=== PATIENT | female | born 1955 | race African-American/Black ===

== ENCOUNTER 2017-05-01 14:22 | Inpatient (IN) | payer OTHER ==
[~2017-05-01] VITALS: Ht 162.6 cm; Wt 63.5 kg
[~2017-05-01 14:22] MED LIST: CLONADINE PO
[2017-05-01 16:09] LABS: BASOPHILS % 0.2 % (0.0-2.0); EOSINOPHILS % 0.4 % (0.0-5.0); HEMATOCRIT. 37.7 % (36.0-48.0); HEMOGLOBIN. 13.2 g/dL (12.0-16.0); LYMPHOCYTES % 27.2 % (20.0-50.0); MEAN CORPUSCULAR VOLUME 88.9 fL (81.0-99.0); MEAN PLATELET VOLUME 7.5 fl (7.4-10.4); MONOCYTES % 7.2 % (2.0-8.0); PLATELET 329 x1000/uL (130-400); RED BLOOD CELL COUNT 4.24 mill/uL (4.2-5.4)
[2017-05-01 16:14] LABS: CHLORIDE 105 mEq/L (98-107)
[2017-05-01 16:15] LABS: CLARITY URINE CLEAR (CLEAR); COLOR URINE YELLOW (YELLOW); GLUCOSE URINE NEGATIVE (NEGATIVE); KETONES URINE NEGATIVE (NEGATIVE); LEUKOCYTE ESTERASE URINE NEGATIVE (NEGATIVE); NITRITE URINE NEGATIVE (NEGATIVE); OCCULT BLOOD URINE TRACE (NEGATIVE); PH URINE 7.5 (4.5-8.0); PROTEIN URINE NEGATIVE (NEGATIVE); SPECIFIC GRAVITY URINE 1.008 (1.005-1.030); UROBILINOGEN URINE 0.2 E.U./dL (0.2-1.0)
[2017-05-01 16:16] LABS: CARBON DIOXIDE 29 mEq/L (21-32)
[2017-05-01 16:17] LABS: PROTHROMBIN TIME 10.8 sec (9.4-11.6)
[2017-05-01 16:24] LABS: TROPONIN I < 0.02 ng/mL (0.00-0.04)
[2017-05-01 16:46] LABS: HEPATITIS B SURFACE ANTIGEN NEGATIVE
[2017-05-01 17:06] LABS: *AMPHETAMINES SCREEN URINE NEGATIVE (NEGATIVE); *BARBITURATES SCREEN URINE NEGATIVE (NEGATIVE); *BENZODIAZEPINES SCREEN URINE NEGATIVE (NEGATIVE); *COCAINE SCREEN URINE NEGATIVE (NEGATIVE); CANNABINOID URINE SCREEN PRESUMTIVE POSITIVE (NEGATIVE); METHADONE URINE SCREEN NEGATIVE (NEGATIVE); OPIATES URINE SCREEN NEGATIVE (NEGATIVE); PHENCYCLIDINE URINE SCREEN NEGATIVE (NEGATIVE)
[2017-05-01 17:14] LABS: HEPATITIS B CORE AB IGM NEGATIVE
[2017-05-01 17:15] LABS: HEPATITIS A AB IGM NEGATIVE (NEGATIVE)
[2017-05-01] MEDS ORDERED: CARVEDILOL 6.25 MG TABLET PO ONE (20:00)
[2017-05-01] MEDS ORDERED: LEVOFLOXACIN 500MG PREMIX 100 ML IV ONE (21:00)
[2017-05-01] MEDS ORDERED: DIPHENHYDRAMINE 50MG/ML VIAL IV PRN (22:45)
[2017-05-01] MEDS ORDERED: GUAIFENESIN 200MG/10ML SUGAR FREE UDC PO PRN (22:45)
[2017-05-01] MEDS ORDERED: ONDANSETRON HCL 4MG/2ML VIAL IV PRN (22:45)
[2017-05-01] MEDS ORDERED: KETOROLAC 15MG/ML VIAL IV PRN (22:45)
[2017-05-01] MEDS ORDERED: POTASSIUM CHLORIDE 20MEQ TABLET SR PO SCH (22:45)
[2017-05-01] MEDS ORDERED: LORAZEPAM 2MG/ML CPJ IV PRN (22:45)
[2017-05-01] MEDS ORDERED: CLONIDINE 0.1MG TABLET PO PRN (22:45)
[2017-05-01] MEDS ORDERED: DOCUSATE SODIUM 100MG CAPSULE PO PRN (22:45)
[2017-05-01] MEDS ORDERED: TRAMADOL 50MG TABLET PO PRN (22:45)
[2017-05-01] MEDS ORDERED: MAGNESIUM/ALUMINUM HYDROXIDE/SIMETHICONE 30ML UDC PO PRN (22:45)
[2017-05-01] MEDS ORDERED: IPRATROPIUM/ALBUTEROL 0.5-3(2.5)MG/3ML NEB INH PRN (22:45)
[2017-05-01] MEDS ORDERED: NITROGLYCERIN 0.4MG TABLET SL SL PRN (22:45)
[2017-05-01 23:00] VITALS: BP 136/94
[2017-05-02] VITALS: BP 136/94
[2017-05-02] MEDS ORDERED: NA PHOS,M-B/NA PHOS,DI-BA ENEMA 118ML PR PRN (01:05)
[2017-05-02] MEDS ORDERED: ZOLPIDEM TARTRATE 5MG TABLET PO PRN (01:08)
[2017-05-02] MEDS ORDERED: ACETAMINOPHEN 325MG TABLET PO PRN (01:11)
[2017-05-02] MEDS ORDERED: AZITHROMYCIN 500 MG in DEXT 5% WATER 250 ML IV SCH (02:00)
[2017-05-02 04:00] VITALS: BP 165/93
[2017-05-02] MEDS ORDERED: BENAZEPRIL PO (07:44)
[2017-05-02] MEDS ORDERED: CARVEDILOL PO (07:47)
[2017-05-02] MEDS ORDERED: DULCOLAX PO (07:49)
[2017-05-02 08:00] VITALS: BP 166/88
[2017-05-02] MEDS ORDERED: FAMOTIDINE 20MG/2ML VIAL IV SCH (09:00)
[2017-05-02] MEDS ORDERED: ENOXAPARIN 40MG/0.4ML SYR SUBCUT SCH (09:00)
[2017-05-02] MEDS ORDERED: IPRATROPIUM/ALBUTEROL 0.5-3(2.5)MG/3ML NEB HHN SCH (11:30)
[2017-05-02 12:00] VITALS: BP 166/88
[2017-05-02] MEDS ORDERED: LEVOFLOXACIN 500MG PREMIX 100 ML IV SCH (22:00)
== END 2017-05-02 12:25 | disposition home or self-care (01) | DRG 139 ==
LOC: ER 14:28 → EDBEDREQ 21:08 → EDBEDREQTM 21:08 → ENRESERV 21:15 → 6EST 22:39
PROVIDERS: ADMIT Internal Medicine; ATTEND Internal Medicine
DX: J18.9 Pneumonia, unspecified organism (principal); J96.00 Acute respiratory failure, unspecified whether with hypoxia or hypercapnia; J42 Unspecified chronic bronchitis; I10 Essential (primary) hypertension; E87.6 Hypokalemia; M54.9 Dorsalgia, unspecified; Z88.0 Allergy status to penicillin; Z88.6 Allergy status to analgesic agent; Z88.5 Allergy status to narcotic agent; Z88.2 Allergy status to sulfonamides; Z88.8 Allergy status to other drugs, medicaments and biological substances; Z88.1 Allergy status to other antibiotic agents
CPT/HCPCS: 36415; 71010; 74176; 80053; 80305; 81001; 83036; 83880; 84484; 85025; 85610; 85651; 86705; 86709; 86803; 87340; 93005; 96374; 99285; G0482; J0456; J1650; J1885; J1956; J2060; J3490; J7040; J7060